=== PATIENT | male | born 2000 ===

== ENCOUNTER 2023-07-04 20:49 | Emergency (ER) | payer OTHER ==
[~2023-07-04] VITALS: Ht 160 cm; Wt 62.5 kg
[2023-07-04] MEDS ORDERED: ACETAMINOPHEN 325 MG TAB PO ONE (23:00)
[2023-07-04] MEDS ORDERED: DIPHTH,PERTUSS(ACELL),TET VAC 0.5 ML SYRINGE IM ONE (23:00)
[2023-07-04 23:37] VITALS: BP 136/74
== END 2023-07-04 23:37 | disposition home or self-care (01) ==
LOC: ED 20:49
DX: S00.03XA Contusion of scalp, initial encounter (principal); W50.0XXA Accidental hit or strike by another person, initial encounter
CPT/HCPCS: 90471; 90715; 99283-25; A9270